=== PATIENT | female | born 1965 | race African-American/Black ===

== ENCOUNTER 2018-05-20 12:37 | Outpatient (CLI) | payer OTHER | END 2018-05-20 12:38 | disposition home or self-care (01) | LOC: BICMAMMO 12:37 | PROVIDERS: ATTEND Family Medicine | DX: Z12.31 Encounter for screening mammogram for malignant neoplasm of breast (principal); R92.1 Mammographic calcification found on diagnostic imaging of breast; Z80.3 Family history of malignant neoplasm of breast | CPT/HCPCS: 77063; 77067 ==

== ENCOUNTER 2019-08-08 16:13 | Outpatient (CLI) | payer OTHER ==
--- NOTE | 2019-08-08 16:39 | MMO ---
Bilateral MAMMO Bilat Screen [facility]. CLINICAL HISTORY: Patient is 54 years old and is seen for screening. The patient family history of breast cancer is unknown. The patient has no personal history of cancer. VIEWS: The views performed were: bilateral craniocaudal with tomosynthesis and bilateral mediolateral oblique with tomosynthesis. FILMS COMPARED: The present examination has been compared to prior imaging studies performed at [facility] on 03/08/2014, 01/10/2016, 04/02/2017 and 05/20/2018. This study has been interpreted with the assistance of computer-aided detection. MAMMOGRAM FINDINGS: The breasts are heterogeneously dense, which could obscure a lesion on mammography. There are stable benign appearing calcifications seen in both breasts. There are no suspicious masses, suspicious calcifications, or new areas of architectural distortion. IMPRESSION: THERE IS NO MAMMOGRAPHIC EVIDENCE OF MALIGNANCY. A ROUTINE FOLLOW-UP MAMMOGRAM IN 1 YEAR IS RECOMMENDED. THE RESULTS OF THIS EXAM WERE SENT TO THE PATIENT. ACR BI-RADS Category 2 - Benign finding MAMMOGRAPHY NOTE: 1. A negative mammogram report should not delay a biopsy if a dominant of clinically suspicious mass is present. 2. Approximately 10% to 15% of breast cancers are not detected by mammography. 3. Adenosis and dense breasts may obscure an underlying neoplasm. Reported by: LARISA DOMINIQUE MD Electonically Signed: [id number]
== END 2019-08-08 16:14 | disposition home or self-care (01) ==
LOC: BICMAMMO 16:13
PROVIDERS: ATTEND Family Medicine
DX: Z12.31 Encounter for screening mammogram for malignant neoplasm of breast (principal); Z80.3 Family history of malignant neoplasm of breast
CPT/HCPCS: 77063; 77067

== ENCOUNTER 2020-07-18 11:22 | Outpatient (CLI) | payer BC ==
--- NOTE | 2020-07-18 12:21 | CT ---
CT ABDOMEN AND PELVIS WITH IV CONTRAST 07/18/2020 CLINICAL INFORMATION: Mid abdominal pain with radiation of pain to right side of abdomen. Complex renal cyst. COMPARISON: 01/08/2016 Technique: Multiple contiguous axial CT images are obtained through the abdomen and pelvis with IV contrast. Cor onal reformatted images are provided. FINDINGS: Lower Chest: Mild emphysematous changes are seen at the lung bases. Calcified granuloma is seen in th e lingula. Vessels: Mild vascular calcifications and atherosclerotic plaque in the abdominal aorta and involving the iliac arteries. Abdomen: Portal vein:Patent Gallbladder: Within normal limits for CT imaging. Liver: within normal limits. Spleen: within normal limits. Pancreas: within normal limits. Adrenals: within normal limits. Kidneys: Again noted are bilateral renal cysts which are unchanged in size or appearance. The more co mplex superior pole right renal cyst is again seen with lobulated margins and fine internal septations. However, this lesion is unchanged in appearance or size compared to study in 2016 as well as a prior study in 2014. No new lesion is seen, and no enhancing renal lesions are identified. Bowel: Evidence of colonic diverticulosis. Loops of small bowel are normal in caliber. Appendix: The appendix is visualized and normal in caliber. Peritoneum: No ascites or free air; no fluid collection. Mesentery and Retroperitoneum: No enlarged mesenteric or retroperitoneal lymph nodes. Abdominal Wall: within normal limits. Pelvis: Reproductive Organs: Uterus is again not visualized and presumably secondary to hysterectomy. Bladder: Within normal limits for incompletely distended appearance. Bones: No suspicious lytic or sclerotic osseous lesions are identified. IMPRESSION: 1. Stable bilateral renal cysts including stable mildly complicated cyst with fine internal septation s in the superior pole right kidney which is unchanged compared to study dating back to 2014. 2. No renal or ureteral calculi are seen bilaterally. 3. Colonic diverticulosis. 4. Hysterectomy. 5. No acute findings in the abdomen or pelvis.
== END 2020-07-18 11:23 | disposition home or self-care (01) ==
LOC: SCSCT 11:22
PROVIDERS: ATTEND Family Medicine
DX: N28.1 Cyst of kidney, acquired (principal); K57.30 Diverticulosis of large intestine without perforation or abscess without bleeding; N28.89 Other specified disorders of kidney and ureter; Z90.710 Acquired absence of both cervix and uterus
CPT/HCPCS: 74177

== ENCOUNTER 2021-02-07 10:44 | Outpatient (CLI) | payer BC | END 2021-02-07 10:45 | disposition home or self-care (01) | LOC: BICRAD 10:44 | PROVIDERS: ATTEND Family Medicine | DX: M47.22 Other spondylosis with radiculopathy, cervical region (principal) | CPT/HCPCS: 72040 ==

== ENCOUNTER 2022-02-24 12:34 | Outpatient (CLI) | payer BC | END 2022-02-24 12:35 | disposition home or self-care (01) | LOC: BICMAMMO 12:34 | PROVIDERS: ATTEND Family Medicine | DX: Z12.31 Encounter for screening mammogram for malignant neoplasm of breast (principal) | CPT/HCPCS: 77063; 77067 ==

== ENCOUNTER 2023-09-13 20:38 | Emergency (ER) | payer BC ==
[2023-09-13] MEDS ORDERED: Potassium Chloride 20 MEQ TAB ONE (21:21)
[2023-09-13 21:30] LABS: Hematocrit 37.6 % (36.0-47.0); Hemoglobin 12.5 g/dL (12.0-16.0); Manual Diff?? YES; Mean Corpuscular HGB CONC 33.2 g/dL (32.0-36.0); Mean Corpuscular Hemoglobin 28.8 pg (27.0-31.0); Mean Corpuscular Volume 86.6 fl (78.0-98.0); Platelet Count 363 10x3/uL (130-400); RBC Distribution Width 12.9 % (11.5-14.5); Red Blood Cell (RBC) Count 4.34 mill/uL (4.20-5.40)
[2023-09-13 21:45] LABS: Delete Auto Diff?? YES
[2023-09-13 21:56] LABS: ALT (SGPT) 9 U/L (8-55); AST (SGOT) 15 U/L (5-34); Albumin 4.2 g/dL (3.5-5.0); Alkaline Phosphatase 63 U/L (40-110); Anion Gap 14 mmol/L (10-20); BUN (Urea Nitrogen) 10 mg/dL (9.8-20.1); Bilirubin, Total 0.2 mg/dL (0.2-1.2); Calc. Creatinine Clearance 0 mL/min (70-130); Calcium 9.4 mg/dL (7.8-10.44); Carbon Dioxide 30 mmol/L (22-29); Chloride 99 mmol/L (98-107); Estimated GFR 80; Glucose 97 mg/dL (70-105); Potassium 2.9 mmol/L (3.5-5.1); Protein, Total 7.2 g/dL (6.0-8.3); Sodium 140 mmol/L (136-145)
[2023-09-13 22:04] LABS: Troponin I Less than 0.010 ng/mL (< 0.028)
[2023-09-13 22:15] LABS: CellaVision Operator ID LAB.JMM; Eosinophils 3 % (0-10); Lymphocytes 64 % (21-51); Monocytes 4 % (0-10); Neutrophil 26 % (42-75); Platelet Adequacy Comment Platelets Normal; RBC Morphology Within Normal Limits; Reactive Lymphocytes 1 % (0-10); Smudge Cells 42.7 %; Total Cell Count 96
== END 2023-09-13 22:23 | disposition home or self-care (01) ==
LOC: ERS 20:38
DX: E87.6 Hypokalemia (principal); E78.5 Hyperlipidemia, unspecified; I10 Essential (primary) hypertension
CPT/HCPCS: 36415; 80053; 80061; 81001; 82306; 84484; 85025; 93005

== ENCOUNTER 2024-07-20 17:02 | Emergency (ER) | payer BC ==
[2024-07-20] MEDS ORDERED: Ondansetron PF 4 MG/2 ML Vial ONE (18:23)
[2024-07-20] MEDS ORDERED: Morphine 4 MG/ML VIAL ONE (18:23)
[2024-07-20 18:24] LABS: Bacteria/HPF None Seen HPF (None Seen); Bilirubin Negative (Negative); Blood, Urine 2+ (Negative); CAUTI Indications for Culture Pelvic or flank pain; Clarity Clear (Clear); Glucose, Urine (Dipstick) Normal (Negative); Ketone, Urine 20 mg/dL (Negative); Leukocyte Negative Leu/uL (Negative); Nitrite Negative (Negative); Protein, Urine (Dipstick) 20 mg/dL (Neg-Trace); RBC/HPF 21-50 HPF (0-3); Specific Gravity, Urine 1.029 (1.002-1.036); Squamous Epithelial 0-3 HPF (0-3); Urobilinogen Normal mg/dL (Less than 2); WBC/HPF 0-3 HPF (0-3); pH, Urine 5.5 (5.0-9.0)
[2024-07-20 18:25] LABS: Urine Culture Reflex No No
[2024-07-20 18:33] LABS: #Basophils 0.06 10x3/uL (0.0-0.2); %Basophils 0.7 % (0.0-1.0); %Eosinophils 2.1 % (0.0-10.0); %Lymphocytes 27.3 % (21.0-51.0); %Monocytes 5.6 % (0.0-10.0); %Neutrophils 63.9 % (42.0-75.0); Hematocrit 41.5 % (36.0-47.0); Mean Corpuscular HGB CONC 33.7 g/dL (32.0-36.0); Mean Corpuscular Hemoglobin 28.3 pg (27.0-31.0); Mean Platelet Volume 10.2 fL (7.4-10.4); Platelet Count 489 10x3/uL (130-400); RBC Distribution Width 12.7 % (11.5-14.5); Red Blood Cell (RBC) Count 4.94 mill/uL (4.20-5.40)
[2024-07-20 18:36] LABS: Troponin I Less than 0.010 ng/mL (< 0.028)
[2024-07-20 18:42] LABS: ALT (SGPT) 10 U/L (8-55); AST (SGOT) 17 U/L (5-34); Albumin 4.1 g/dL (3.5-5.0); Alkaline Phosphatase 64 U/L (40-110); Anion Gap 12 mmol/L (10-20); BUN (Urea Nitrogen) 12 mg/dL (9.8-20.1); Bilirubin, Total 0.5 mg/dL (0.2-1.2); Calc. Creatinine Clearance 0 mL/min (70-130); Carbon Dioxide 27 mmol/L (22-29); Chloride 102 mmol/L (98-107); Estimated GFR 73; Globulin 3.3 g/dL (2.4-3.5); Glucose 91 mg/dL (70-105); Lipase 14 U/L (8-78); Potassium 3.8 mmol/L (3.5-5.1); Protein, Total 7.4 g/dL (6.0-8.3); Sodium 137 mmol/L (136-145)
== END 2024-07-20 20:49 | disposition home or self-care (01) ==
LOC: ERS 17:02
DX: K59.00 Constipation, unspecified (principal); R11.2 Nausea with vomiting, unspecified; I10 Essential (primary) hypertension
CPT/HCPCS: 74177; 80053; 81001; 83690; 84484; 85025; 93005; 96374; 96375; J2272; J2405

== ENCOUNTER 2024-09-11 11:01 | Outpatient (CLI) | payer BC ==
[2024-09-11 14:03] LABS: #Basophils 0.04 10x3/uL (0.0-0.2); %Basophils 0.9 % (0.0-1.0); %Eosinophils 4.7 % (0.0-10.0); %Lymphocytes 57.2 % (21.0-51.0); %Neutrophils 29.2 % (42.0-75.0); Hematocrit 38.5 % (36.0-47.0); Hemoglobin 12.3 g/dL (12.0-16.0); Mean Corpuscular HGB CONC 31.9 g/dL (32.0-36.0); Mean Corpuscular Volume 87.5 fL (78.0-98.0); Mean Platelet Volume 10.9 fL (7.4-10.4); Platelet Count 373 10x3/uL (130-400); RBC Distribution Width 14.2 % (11.5-14.5)
[2024-09-11 14:15] LABS: Anion Gap 12 mmol/L (10-20); BUN (Urea Nitrogen) 8 mg/dL (9.8-20.1); Calc. Creatinine Clearance 0 mL/min (70-130); Calcium 9.5 mg/dL (7.8-10.44); Carbon Dioxide 28 mmol/L (22-29); Chloride 104 mmol/L (98-107); Estimated GFR 82; Glucose 84 mg/dL (70-105); Potassium 3.4 mmol/L (3.5-5.1); Sodium 141 mmol/L (136-145)
== END 2024-09-11 11:02 | disposition home or self-care (01) ==
LOC: LABBT 11:01
PROVIDERS: ATTEND Surgery
DX: Z01.818 Encounter for other preprocedural examination (principal); K56.50 Intestinal adhesions [bands], unspecified as to partial versus complete obstruction
CPT/HCPCS: 80048; 85025; 93005; 93010

== ENCOUNTER 2024-09-18 06:19 | Observation (INO) | payer BC ==
[2024-09-11 11:20] VITALS: BMI 23.0
[2024-09-18] MEDS ORDERED: Midazolam HCl 2 mg/2 ml Vial ONE (06:30)
[2024-09-18] MEDS ORDERED: fentaNYL PF 100 MCG/2 ML SYRINGE ONE (06:30)
[2024-09-18] MEDS ORDERED: PROPOFOL 20 ML ONE (06:30)
[2024-09-18] MEDS ORDERED: Lidocaine 1% PF 5 ML VIAL ONE (06:31)
[2024-09-18] MEDS ORDERED: ePHEDrine Sulfate 50 MG/10 ML VIAL ONE (06:31)
[2024-09-18] MEDS ORDERED: Rocuronium Bromide 10 MG/ML (10ML VIAL) ONE (06:31)
[2024-09-18] MEDS ORDERED: Dexamethasone 4 mg/ml Vial ONE (06:31)
[2024-09-18] MEDS ORDERED: Ondansetron PF 4 MG/2 ML Vial ONE (06:31)
[2024-09-18] MEDS ORDERED: Bupivacaine 0.25% HCL 30 ML VIAL ONE (07:05)
[2024-09-18] MEDS ORDERED: EPINEPHrine 1 MG/ML VIAL ONE (07:05)
[2024-09-18] MEDS ORDERED: SUCCINYLCHOLINE/SOD CL,ISO/PF 200 MG/10 ML SYRINGE FS ONE (07:16)
[2024-09-18] MEDS ORDERED: PHENYLEPHRINE-NS 100 MCG/ML 10 ML SYRINGE ONE (07:16)
[2024-09-18] MEDS ORDERED: cefOXitin 2 GM VIAL ONE (07:25)
[2024-09-18] MEDS ORDERED: HYDROmorphone 2 MG/ML VIAL ONE (09:15)
[2024-09-18] MEDS ORDERED: Sodium Chloride 0.9% 250 ML 250 ML ONE (10:30)
[2024-09-18] MEDS ORDERED: SUGAMMADEX SODIUM 200 MG/2 ML VIAL ONE (10:49)
[2024-09-18] MEDS ORDERED: Calcium Carbonate 500 MG ChewTAB PO PRN (11:05)
[2024-09-18] MEDS ORDERED: Ondansetron PF 4 MG/2 ML Vial IVP PRN (11:05)
[2024-09-18] MEDS ORDERED: Ipratropium/Albuterol 3 ML NEB NEB PRN (11:05)
[2024-09-18] MEDS ORDERED: Glucagon 1 MG/ML KIT IM PRN (11:05)
[2024-09-18] MEDS ORDERED: Dextrose 5% in Water 1,000 ML IV PRN (11:05)
[2024-09-18] MEDS ORDERED: hydrALAZINE 20 MG/ML VIAL SLOW IVP PRN (11:05)
[2024-09-18] MEDS ORDERED: Dextrose 50% Abboject 50 ML SYRINGE SLOW IVP PRN (11:05)
[2024-09-18] MEDS ORDERED: HYDROcodone/Acetaminophen 10/325 mg Tablet PO PRN (11:05)
[2024-09-18] MEDS ORDERED: Promethazine HCl 25 MG/ML VIAL IM PRN (11:05)
[2024-09-18] MEDS ORDERED: Mag-Al 1200 mg/1200 mg/30 ML UDCUP PO PRN (11:05)
[2024-09-18] MEDS ORDERED: SUMAtriptan Succinate 50 MG TAB PO PRN (11:09)
[2024-09-18] MEDS ORDERED: Cyclobenzaprine 10 MG TAB PO PRN (11:36)
[2024-09-18] MEDS: D5 1/2 NS w/20 mEq KCL 1,000 ML IV SCH (13:14)
[2024-09-18] MEDS: Ketorolac Tromethamine 30 MG (1 mL) VIAL IVP SCH (13:14)
[2024-09-18] MEDS: Morphine 2 MG/ML VIAL SLOW IVP PRN (14:44)
[2024-09-18] MEDS: Famotidine/PF 20 mg/2ml Vial SLOW IVP SCH (21:27)
[2024-09-19 07:59] VITALS: BP 110/55; TEMP 97.8
[2024-09-19] MEDS: Hydrochlorothiazide 25 MG TAB PO SCH (08:30)
[2024-09-19] MEDS: Losartan 25 MG TAB PO SCH (08:30)
== END 2024-09-19 10:06 | disposition home or self-care (01) ==
LOC: SDC 06:19 → SURG A 12:27
PROVIDERS: ADMIT Surgery; ATTEND Surgery
PROC: 0DN84ZZ Release Small Intestine, Percutaneous Endoscopic Approach (ICD-10-PCS; principal; 2024-09-18)
DX: K56.50 Intestinal adhesions [bands], unspecified as to partial versus complete obstruction (principal); K56.699 Other intestinal obstruction unspecified as to partial versus complete obstruction; I10 Essential (primary) hypertension; E78.5 Hyperlipidemia, unspecified; M19.90 Unspecified osteoarthritis, unspecified site; F17.200 Nicotine dependence, unspecified, uncomplicated; Z90.722 Acquired absence of ovaries, bilateral; Z90.710 Acquired absence of both cervix and uterus; Z98.51 Tubal ligation status; Z79.899 Other long term (current) drug therapy
CPT/HCPCS: J0171; J0665; J0694; J1100; J1885; J2250; J2272; J2405; J2704; J3480; J3490; J7050